=== PATIENT | female | born 1950 | race Caucasian/White ===

== ENCOUNTER 2018-02-07 06:29 | Emergency (ER) | payer MEDICARE, OTHER ==
[~2018-02-07] VITALS: Ht 160 cm; Wt 84.5 kg
[2018-02-07] MEDS ORDERED: LISI-661 PO (06:48)
[2018-02-07] MEDS ORDERED: OMEG-135 PO (06:48)
[2018-02-07] MEDS ORDERED: SIMV-260 PO (06:48)
[2018-02-07] MEDS ORDERED: MECL-111 PO (06:48)
[2018-02-07] MEDS ORDERED: OMEP20 PO (06:48)
[2018-02-07 10:15] VITALS: BP 144/78
== END 2018-02-07 10:35 | disposition home or self-care (01) ==
LOC: EMS 06:31
DX: S90.32XA Contusion of left foot, initial encounter (principal); K21.9 Gastro-esophageal reflux disease without esophagitis; E78.00 Pure hypercholesterolemia, unspecified; I10 Essential (primary) hypertension; Z88.5 Allergy status to narcotic agent; Z88.2 Allergy status to sulfonamides; Z88.1 Allergy status to other antibiotic agents; Y04.2XXA Assault by strike against or bumped into by another person, initial encounter; Y93.89 Activity, other specified; Y92.89 Other specified places as the place of occurrence of the external cause; Y99.8 Other external cause status
CPT/HCPCS: 99284

== ENCOUNTER 2021-02-20 01:36 | Emergency (ER) | payer MEDICARE, OTHER ==
[~2021-02-20] VITALS: Ht 160 cm; Wt 75.5 kg
[~2021-02-20 01:36] MED LIST: LISI-893 PO; MECL-160 PO; OMEG-135 PO; OMEP20 PO; SIMV-260 PO
[2021-02-20] MEDS ORDERED: CIPR-278 PO (01:56)
[2021-02-20] MEDS ORDERED: INSLAN SQ (02:00)
[2021-02-20] MEDS ORDERED: INSU100V SQ (02:00)
[2021-02-20 02:20] LABS: APPEARANCE,URINE CLEAR (CLEAR); BILIRUBIN,URINE NEGATIVE (NEGATIVE); GLUCOSE, URINE (UA) >=1000 mg/dL (NEGATIVE); KETONES,URINE NEGATIVE (NEGATIVE); LEUKOCYTE ESTERASE ,URINE NEGATIVE (NEGATIVE); NITRATE,URINE POSITIVE (NEGATIVE); OCCULT BLOOD,URINE SMALL (NEGATIVE); PH,URINE 6.5 (5.0-8.0); PROTEIN,URINE SEE CONFIRM (NEGATIVE); UROBILINOGEN,URINE 0.2 mg/dL (<=1.0)
[2021-02-20 02:24] LABS: AMPHET/METH SCREEN,URINE NEGATIVE (NEGATIVE); BARBITURATE SCREEN, URINE NEGATIVE (NEGATIVE); BENZODIAZEPINES SCREEN,URINE NEGATIVE (NEGATIVE); CANNABINOID SCREEN,URINE NEGATIVE (NEGATIVE); COCAINE SCREEN,URINE NEGATIVE (NEGATIVE); METHADONE SCREEN, URINE NEGATIVE (NEGATIVE); OPIATE SCREEN,URINE NEGATIVE (NEGATIVE)
[2021-02-20 02:25] LABS: BACTERIA,URINE Many /HPF (None Seen); SULFOSALICYLIC ACID,URINE 3+ (Negative); WBC,URINE 26-50 /HPF (0-5)
[2021-02-20 02:26] LABS: PHENCYCLIDINE SCREEN,URINE NEGATIVE (NEGATIVE)
[2021-02-20 02:31] LABS: BASOPHILS % (AUTO) 0.7 % (0.0-2.0); EOSINOPHILS % (AUTO) 3.8 % (1.0-6.0); HEMATOCRIT 33.9 % (36-46); HEMOGLOBIN 11.4 g/dL (12.0-16.0); LYMPHOCYTES # (AUTO) 2.3 K/uL (1.0-4.8); LYMPHOCYTES % (AUTO) 39.4 % (22.0-44.0); MEAN CORPUSCULAR HEMOGLOBIN 28.9 pg (26.0-34.0); MEAN CORPUSCULAR HGB CONC 33.6 G/dL (31.0-37.0); MEAN CORPUSCULAR VOLUME 86 fL (80-100); MONOCYTES # (AUTO) 0.4 K/uL (0.1-1.0); MONOCYTES % (AUTO) 6.9 % (2.0-9.0); NEUTROPHILS # (AUTO) 2.9 K/uL (1.8-7.7); NEUTROPHILS % (AUTO) 49.2 % (40.0-70.0); PLATELET COUNT (AUTO) 218 K/uL (150-450); RED BLOOD CELL COUNT(AUTO) 3.94 MIL/uL (4.00-5.20); RED CELL DISTRIBUTION WIDTH 12.5 % (11.5-14.5)
[2021-02-20 02:44] LABS: GLUCOSE,POINT OF CARE 128 MG/DL (70-110)
[2021-02-20 02:54] LABS: ALBUMIN 3.2 g/dL (3.4-5.0); BILIRUBIN,TOTAL 0.2 mg/dL (0.1-1.0); CALCIUM, TOTAL 8.9 mg/dL (8.8-10.5); CREATININE 1.56 mg/dL (0.60-1.30); MAGNESIUM 1.7 mg/dL (1.80-2.40); POTASSIUM 4.1 mmol/L (3.5-5.1); TOTAL PROTEIN, SERUM 6.9 g/dL (6.4-8.2)
[2021-02-20] MEDS ORDERED: DEXTROSE 50%-WATER 25 GM/50 ML SYRINGE IVP ONE (03:00)
[2021-02-20] MEDS ORDERED: DEXTROSE 5%-0.9% SODIUM CHL 1,000 ML IV ONE (03:00)
[2021-02-20 03:33] LABS: GLUCOSE,POINT OF CARE 104 MG/DL (70-110)
[2021-02-20] MEDS ORDERED: MAGNESIUM OXIDE 400 MG TABLET PO ONE (04:15)
[2021-02-20 04:40] LABS: GLUCOSE,POINT OF CARE 150 MG/DL (70-110)
[2021-02-20 05:37] LABS: GLUCOSE,POINT OF CARE 186 MG/DL (70-110)
[2021-02-20 06:48] LABS: GLUCOSE,POINT OF CARE 195 MG/DL (70-110)
[2021-02-20 06:51] VITALS: BP 162/64
[2021-02-20] MEDS ORDERED: IBUPROFEN 600 MG TABLET PO ONE (07:15)
[2021-02-20] MEDS ORDERED: ACETAMINOPHEN 325 MG TABLET PO ONE (07:15)
== END 2021-02-20 07:42 | disposition home or self-care (01) ==
LOC: EMS 01:36
DX: T38.3X1A Poisoning by insulin and oral hypoglycemic [antidiabetic] drugs, accidental (unintentional), initial encounter (principal); E11.9 Type 2 diabetes mellitus without complications; K21.9 Gastro-esophageal reflux disease without esophagitis; I10 Essential (primary) hypertension; E78.00 Pure hypercholesterolemia, unspecified; Z90.89 Acquired absence of other organs; Z88.5 Allergy status to narcotic agent; Z88.1 Allergy status to other antibiotic agents; Z79.4 Long term (current) use of insulin; Y92.89 Other specified places as the place of occurrence of the external cause
CPT/HCPCS: 36415; 80053; 80307; 81001; 82962; 83605; 83735; 85025; 87077; 87086; 96365; 96366; 96376; 99291; J7042

== ENCOUNTER 2022-06-08 09:47 | Emergency (ER) | payer MEDICARE, OTHER ==
[~2022-06-08] VITALS: Ht 160 cm; Wt 73.2 kg
[~2022-06-08 09:47] MED LIST changes: +CIPR-278 PO; +INSLAN SQ; +INSU100V SQ; -LISI-893 PO; -MECL-160 PO; +OMEG-108 PO; -OMEG-135 PO; -OMEP20 PO; -SIMV-260 PO
[2022-06-08 11:36] LABS: GLUCOSE,POINT OF CARE 319 MG/DL (70-110)
[2022-06-08] MEDS ORDERED: INSULIN REGULAR, HUMAN 100 UNITS/ML IVP ONE (11:45)
[2022-06-08] MEDS ORDERED: SODIUM CHLORIDE 0.9% 1,000 ML IV ONE (11:45)
[2022-06-08] MEDS ORDERED: INSLAN SQ (11:50)
[2022-06-08 12:54] VITALS: BP 138/72
[2022-06-08 13:07] LABS: GLUCOSE,POINT OF CARE 191 MG/DL (70-110)
== END 2022-06-08 13:23 | disposition home or self-care (01) ==
LOC: EDUNIT# 09:47 → EMS 09:50
DX: E11.65 Type 2 diabetes mellitus with hyperglycemia (principal); Z48.01 Encounter for change or removal of surgical wound dressing; K21.9 Gastro-esophageal reflux disease without esophagitis; E78.00 Pure hypercholesterolemia, unspecified; I10 Essential (primary) hypertension; Z90.710 Acquired absence of both cervix and uterus; Z90.49 Acquired absence of other specified parts of digestive tract; Z88.2 Allergy status to sulfonamides; Z87.828 Personal history of other (healed) physical injury and trauma
CPT/HCPCS: 99283; 96374; 96361; 82962; J1815; J7030